=== PATIENT | male | born 1945 | race Caucasian/White ===

== ENCOUNTER 2016-11-20 16:38 | Inpatient (IN) | payer MEDICARE, SELFPAY ==
--- NOTE | ~2016-11-20 | HP ---
History And Physical [address] [address] [place]. [address] NAME: OSMAR BAER : 41 STATUS : ADM IN [facility]#: [id number] AGE: 71 ADM/REG DATE : 11/20/16 MR#: [id number] REPORT SERV DATE: 11/21/16 DICTATED BY: GAGE BIGGS DATE: 11/20/16 REPORT STATUS : Draft TRANSCRIBED BY: MODL DATE: 11/20/16 DATE OF ADMISSION: 11/20/2016 HISTORY OF PRESENT ILLNESS: This is a 71-year-old male who presented to [facility] because of the pain behind the right ear which was progressively increasing as well as he has a big hole behind of his ear with some connection to the mastoid, and there were maggots coming out of the wound. The patient denies any fever, no rash. He is complaining of periodic pain, and he says that he had a scalp cancer which was treated by Dr. Ortega, his oncologist; as well as Dr. Gopal Win, who is his Ear, Nose, and Throat; and Dr. Rodriguez, his radiation oncologist. He had his last chemotherapy in July and radiation therapy also in July, but for the last three weeks, progressively increasing pain behind of his right ear was worrisome for him as well as he saw recently Dr. Gopal Win who did biopsy on the big wound behind of his ear as well as he said that he had a PET scan ordered by Dr. Ortega. The patient denies any chest pain, no shortness of breath. No fever. No rash. No headache. No abdominal pain. Otherwise, he is doing well. He had multiple maggots in that wound which were coming out of the wound, and the nurse in the emergency room removed these maggots thoroughly, and there were so many of them and at least 50 maggots were removed. They said they will remove as much as possible. The patient is unaware how this maggots got into the wound. REVIEW OF SYSTEMS: 14-point review of system done and negative except for what is stated in the history of present illness. 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 SOCIAL HISTORY: The patient denies tobacco. No alcohol. No recreational drug use. FAMILY HISTORY: Significant for dementia, COPD, and cancer. ALLERGIES: HE IS ALLERGIC TO PENICILLIN. HOME MEDICATIONS: Diltiazem 240 mg a day, Neurontin 300 four times a day, morphine SR 30 mg twice a day, oxycodone with acetaminophen 5/325 twice daily, Seroquel 25 mg daily p.r.n. if mood is depressed, Coumadin 1.25 mg Thursday, Thursday, Thursday, and 2.5 mg Thursday, , Thursday, Thursday. PHYSICAL EXAMINATION: History And Physical [address] [address] NAME: OSMAR BAER : 43 STATUS : ADM IN [facility]#: [id number] AGE: 71 ADM/REG DATE : 11/20/16 MR#: [id number] REPORT SERV DATE: 11/21/16 DICTATED BY: GAGE BIGGS DATE: 11/20/16 REPORT STATUS : Draft TRANSCRIBED BY: ELEN DATE: 11/20/16 GENERAL: A well-nourished, well-developed male, not in acute distress, resting quietly. VITAL SIGNS: His blood pressure 135/71, temperature 97.7, heart rate 70, respiratory rate 17, oxygen saturation 96% on room air. HEENT: Head atraumatic, normocephalic. Conjunctivae clear. Pupils are equal and reactive to light and accommodation. Extraocular muscles are intact. There is a big wound behind the right ear and it is open wound with maggots coming out of it, and there is a connection with the mastoid area, and there is a big opening. NECK: Supple. Trachea is midline. LUNGS: Diminished breath sounds bilaterally. Decreased respiratory effort. CARDIOVASCULAR: Regular rate and rhythm. Point of maximal impulse not displaced. ABDOMEN: Soft, nontender, nondistended. Positive normoactive bowel sounds. EXTREMITIES: No clubbing, cyanosis. No edema. SKIN: Normal color, slightly decreased turgor. PSYCHIATRIC: Normal mood and affect. LABORATORY RESULTS: Sodium 142, potassium 4.1, chloride 109, carbon dioxide 29, BUN 18, creatinine 1.34, blood sugar 95, ALT 9, AST 8. White count 5.2, hemoglobin 10.5, hematocrit 34.4, platelet count 145. CT of the neck done in the emergency room showed extensive opacification of right middle ear cavity, external auditory canal, and right mastoid air cells with surrounding soft tissue thickening, and two adjacent rim enhancing hypodense collections, largest at the periauricular region, smaller rim enhancing collection inferior to the right mastoid prominence with diffuse thickening of the external ear. This may represent a severe or acute otomastoiditis pattern with adjacent focal soft tissue abscess in the periauricular area and caudal to the mastoid prominence, although an underlying neoplastic process is not excluded. The rim enhancing collection could represent centrally necrotic tumor although abscess is more favored. Correlation with clinical presentation with previous treatment regimens requested, probable reactively enlarged lymph nodes versus soft tissue metastatic nodule deep to the right sternocleidomastoid muscle. This is stable from prior PET scan where this nodule was definitely FDG avid. Multilevel degenerative disc disease and spondylitic changes through the cervical spine through T2, small indeterminate hypodense thyroid nodule largest on the right measuring 8 mm. Suggest followup schedule outpatient thyroid ultrasound for further characterization. His lactic acid level was 0.8. There is a wound culture done in the emergency room, which is currently pending. ASSESSMENT AND PLAN: 1. This is a 71-year-old male with necrotizing preauricular right-sided mass with maggots coming out of the huge wound with a connection to the mastoid/question if this is severe mastoiditis or this is related to his cancer. 2. Squamous cell cancer of the scalp with progression to the ear. 3. History of atrial fibrillation, on chronic Coumadin anticoagulation with subtherapeutic INR. 4. History of pacemaker placement. 5. History of deep vein thrombosis with history of IVC filter placement, history of congestive heart failure with chronic systolic dysfunction, ejection fraction 40 to 45%. History And Physical [address] [address] NAME: OSMAR BAER : 41 STATUS : ADM IN PAT#: [id number] AGE: 71 ADM/REG DATE : 11/20/16 MR#: [id number] REPORT SERV DATE: 11/21/16 DICTATED BY: GAEG BIGGS DATE: 11/20/16 REPORT STATUS : Draft TRANSCRIBED BY: MODL DATE: 11/20/16 6. History of lung cancer with history of treatment. 7. History of prostate cancer, status post ileostomy. The patient's all chronic medical problems currently stable. His problem is that big mass around his ear with maggots coming out of it. The patient is afebrile. He has a normal white count. So, question if this mass is related to infection or this is related to his cancer although with an open wound and having maggots in it, there is a risk of infection progression to inside of his skull. The patient was given triple antibiotic coverage with vancomycin, clindamycin, and meropenem here in the emergency room. We will cover him with Azactam and vancomycin intravenously. We will check his procalcitonin level. Blood cultures are already drawn. We will consult Dr. Win, Ear, Nose, Throat, as well as we will consult Dr. Ortega, his oncologist, to make a further decision on this patient's treatment plan. We will give him reasonable control for pain with morphine p.r.n. as well as we will continue his home medications. Pharmacy will do his Coumadin anticoagulation. My partner will see this patient starting tomorrow morning. MG/MODL Gage Biggs M.D. / [id number] CC: Geovanny Quiles
--- NOTE | ~2016-11-20 | CN ---
Consultation Report [place] [address] [place]. [address] NAME: OSMAR COREA : 41 STATUS : ADM IN [facility]#: [id number] AGE: 71 ADM/REG DATE : 11/20/16 MR#: [id number] REPORT SERV DATE: 11/21/16 DICTATED BY: YOKO COMBS DATE: 11/21/16 REPORT STATUS : Draft TRANSCRIBED BY: MODL DATE: 11/21/16 CONSULT REPORT DATE OF CONSULTATION: 11/21/2016 SERVICE: Otolaryngology. CHIEF COMPLAINT: Right yolanda-auricular lesion/abscess. HISTORY OF PRESENT ILLNESS: Mr. Corea is a pleasant 71-year-old, known to our service for history of multiple head and neck cancer. He had a deeply invasive squamous cell carcinoma of his left parietal scalp as well as an invasive squamous cell carcinoma of his right parietal scalp status post removal on 01/03/2016. He underwent revision of the right parietal scalp with skin graft placement on 03/12/2016. He has a right preauricular metastatic squamous cell carcinoma diagnosed on 04/09/2016. He subsequently underwent chemoradiation with Dr. Ortega and Dr. Rodriguez. This was completed in July 2016. Post chemoradiation, a PET/CT showed an acute inflammatory process of the right ear, right middle ear and external ear. This was performed on 10/03/2016. He was seen in our clinic on 11/13/2016, at which time an ear wick was placed and Ciprodex drops were used. Over the last 24 hours, he has noticed increasing breakdown of his right ear wound. He was also found to have maggots living within his wound bed. He presents to [facility] for further evaluation. IV antibiotics have been started. Based on prior history, ENT is consulted. PAST MEDICAL HISTORY: 1. Lung cancer. 2. Prostate cancer. 3. Basal cell skin cancer. 4. Squamous cell skin cancer as listed above. 5. Chemoradiation. 6. DVT. 7. Hypertension. 8. Diabetes mellitus. PAST SURGICAL HISTORY: 1. History of prostate surgery. 2. Multiple skin cancer resections as well as skin graft reconstruction. ALLERGIES: PENICILLIN. FAMILY HISTORY: There is no history of head and neck cancer in his family. SOCIAL HISTORY: The patient is a former smoker. He denies the current use of alcoholic beverages. He lives with his spouse currently. Consultation Report [place] [address] [place]. [address] NAME: OSMAR COREA : 41 STATUS : ADM IN PAT#: [id number] AGE: 71 ADM/REG DATE : 11/20/16 MR#: [id number] REPORT SERV DATE: 11/21/16 DICTATED BY: YOKO COMBS DATE: 11/21/16 REPORT STATUS : Draft TRANSCRIBED BY: ELEN DATE: 11/21/16 PHYSICAL EXAMINATION: GENERAL: The patient is awake, alert, oriented, and in no acute distress. HEAD: There is obvious right facial asymmetry with House-Brackmann Score of 5/6. He is unable to obtain full eye closure with gross discrepancy arrest. His nasal ala does not flare. His oral commissure is drooping at rest. EARS: His right ear is somewhat proptotic due to postauricular wound breakdown. There is a large cavernous defect at the site of his mastoid, external auditory canal, and middle ear. There is clear evidence of maggots inside this wound. There is no active bleeding or drainage. The left ear appears healthy and intact. EYES: Extraocular movements are intact. There is no scleral injection at present. NOSE: Anterior rhinoscopy shows healthy mucosa, oral cavity. There is very poor dentition and gingival disease. The patient is otherwise healthy. NECK: I do not appreciate discrete palpable cervical adenopathy on today's exam. CARDIOVASCULAR: The patient has well-perfused extremities overall. RESPIRATORY: The patient has nonlabored breathing with no stridor. EXTREMITIES: The patient has full range of motion in all extremities. ASSESSMENT: 1. Mr. Corea is a 71-year-old with known squamous cell carcinoma, which is likely metastasized from his primary scalp lesions in the past. A recent FNA biopsy was performed in clinic on 11/13/2016, which was consistent with moderate to poorly differentiated squamous cell carcinoma. He has had increased wound break down as well as cavernous defect in his post-auricular region. There are maggots growing in his ear as well. 2. We discussed ongoing management to include wet-to-wet dressings with 0.25% Dakin's solution four times daily. This will need to be performed for debridement of the wound. This wound likely represents a combination of cancer recurrence, osteoradionecrosis, and wound breakdown from superimposed infection. 3. I recommend contacting Dr. Ortega and Dr. Rodriguez as he has recently undergone chemoradiation. 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 4. We will plan to present this patient at our Head and neck tumor conference this upcoming Thursday to discuss plans. Surgical resection would likely be extremely difficult due to surrounding inflammation, osteoradionecrosis, location, and likely inability to clear surgical margins at this time. We would recommend consulting palliative care and hospice at present. 5. The patient did have a PET/CT in September 2016, which was likely slightly early after his chemoradiation treatment. He would need an additional PET/CT to assess for distant metastasis as well as for further evaluation of his primary and temporal bone squamous cell carcinoma. We would also consider a temporal bone CT with fine cuts through the temporal bone to assess the full extent of this tumor. This will be performed with contrast. 6. We recommend the patient have Lacri-Lube and Artificial Tears for inability to achieve full eye closure. 7. We will call the patient with the tumor board recommendations and discuss follow up at Consultation Report [address] [place]. [address] NAME: OSMAR COREA : 41 STATUS : ADM IN [facility]#: [id number] AGE: 71 ADM/REG DATE : 11/20/16 MR#: [id number] REPORT SERV DATE: 11/21/16 DICTATED BY: YOKO COMBS DATE: 11/21/16 REPORT STATUS : Draft TRANSCRIBED BY: MODL DATE: 11/21/16 that time. The patient is currently on IV antibiotics. It is reasonable to transition the patient to a fluoroquinolone or clindamycin for home management. We will plan to see him back in clinic in the near future. Thank you for this very interesting consult. We will plan to follow the patient while he is in-house. Please call [phone] with any questions or concerns. /ELEN Yoko Combs MD / [id number] CC: MD AJITH Ruiz PAUL E
--- NOTE | ~2016-11-20 | DS ---
Discharge Summary [facility] [address] [facility] [place]. [address] NAME: OSMAR COREA : 41 STATUS : DIS IN PAT#: [id number] AGE: 71 ADM/REG DATE : 11/20/16 MR#: [id number] REPORT SERV DATE: 11/22/16 DICTATED BY: MALENA THOMAS DATE: 11/22/16 REPORT STATUS : Draft TRANSCRIBED BY: MODL DATE: 11/22/16 ADMISSION DATE: 11/20/2016 DISCHARGE DATE: 11/22/2016 REASON FOR ADMISSION: Necrotizing preauricular right-sided mass with maggots coming out of his wound. HISTORY OF PRESENT ILLNESS: Please refer to Dr. Rojas's history and physical dated 11/20/2016, for complete details regarding the patient's admission. In brief, the patient was admitted to the Hospitalist Service for management of the above. HOSPITAL COURSE: The patient had an uncomplicated hospital course. He had a neck CT done which showed extensive opacification in the right middle ear cavity, external auditory canal, and right mastoid air cells with surrounding soft tissue thickening and two adjacent rim-enhancing hypodense collections, may represent severe acute otomastoiditis versus a neoplastic process. Probable reactive enlarged lymph nodes. With these findings, ENT was consulted along with Dr. Ortega. Dr. Rosas evaluated the patient who is well known to the ENT service, felt that the patient has likely metastasized squamous cell carcinoma from his primary scalp lesions. A recent FNA biopsy was performed in the clinic just a week ago which was consistent with moderate to poorly differentiated squamous cell carcinoma. He has had increased wound break down as well as cavernous defect in the postauricular region. There were maggots growing in his ear. He recommended starting a Dakin's Solution 4 times a day to help clear the maggots. Dr. 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 A culture of the wound did come out as being positive for E. coli. ENT recommended palliative chemotherapy versus hospice. Dr. Ortega had felt that the patient would have a potentially good response to palliative chemotherapy. He was started on vancomycin and aztreonam. The patient did not have any fever or leukocytosis. He had reached maximal hospitalization. He will be discharged home today in a stable condition, to continue the Dakin's Solution along with oral antibiotics and to follow up with Dr. Ortega next week to discuss hospice versus palliative chemotherapy. DISCHARGE DIAGNOSES: 1. 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 2. Maggots from the wound. 3. Paroxysmal atrial fibrillation, on Coumadin. 4. History of DVT with IVC filter placement. PROCEDURES: Include neck CT. CONSULTATION: With Dr. Ortega and Dr. Rosas with ENT. DISCHARGE MEDICATIONS: Include 1. Diltiazem 240 mg every morning. 2. Neurontin 300 mg 4 times a day. Discharge Summary [address] [address] NAME: OSMAR COREA : 41 STATUS : DIS IN PAT#: [id number] AGE: 71 ADM/REG DATE : 11/20/16 MR#: [id number] REPORT SERV DATE: 11/22/16 DICTATED BY: MALENA THOMAS DATE: 11/22/16 REPORT STATUS : Draft TRANSCRIBED BY: ELEN DATE: 11/22/16 3. MS Contin 30 mg twice a day. 4. Coumadin 1.25 mg Thursday, Thursday, and Thursday and 2.5 mg Thursday, , Thursday, and Thursday. 5. Percocet p.r.n. pain. 6. Seroquel p.r.n. 7. Dakin's Solution 4 times a day. 8. Clindamycin 300 mg four times a day for seven days. 9. Ceftin 500 mg twice a day for seven days. FOLLOWUP: The patient will follow up with Dr. Ortega as scheduled. Spending over 30 minutes discharge planning and coordination of care on Mr. Corea. CINDY/ELEN Malena Thomas MD / [id number] CC: MD NJ Ruiz MD Bertrand Marquess Anz III, M.D.
[~2016-11-20 16:38] MED LIST: ASAB PO; ASAEC PO; C25 PO; COZ50 PO; DIABET2.5 PO; DILT-XR240 MG PO; LEVAQUIN750 MG PO; MAX25 PO; MIRALAXPKT PO; MSCONTIN PO; MUCINEX600 MG PO; NEUR300 PO; NORCO1 TAB PO; OTC SLEEP AID PO; PRINZIDE1 TAB PO; PROAIR HFA INH; PROTONIX PO; T PO
[2016-11-20 16:48] LABS: BASOPHILS 0 %; EOSINOPHILS 0.8 %; EOSINOPHILS ABSOLUTE 0.04 10/3/uL (0.0-0.53); HEMOGLOBIN 10.5 g/dL (13.6-17.8); LYMPHOCYTES 13.7 %; LYMPHOCYTES ABSOLUTE 0.71 10/3/uL (0.67-4.30); MEAN PLATELET VOLUME 9.4 fL (9.2-13.0); MONOCYTES 9.5 %; MONOCYTES ABSOLUTE 0.49 10/3/uL (0.21-1.20); NEUTROPHILS ABSOLUTE 3.94 10/3/uL (2.02-8.40); RBC DISTRIBUTION WIDTH 17.3 % (12.0-16.0)
[2016-11-20 16:51] LABS: ER CBC TAT 0 Hrs 16 Mins; HEMATOCRIT 34.4 % (40.0-51.0); MANUAL DIFF NO %; MEAN CORPUS HGB CONC 30.5 g/dL (32.0-36.0); MEAN CORPUSCULAR HEMOGLOB 25.3 pg (26.0-34.0); MEAN CORPUSCULAR VOLUME 82.9 fL (80-100); PLATELET COUNT 145 10/3/uL (150-400); RED CELL COUNT 4.15 10/6/uL (4.7-6.1); WHITE BLOOD CELLS 5.2 10/3/uL (4.5-10.5)
[2016-11-20 16:58] LABS: CALCIUM, SERUM 8.8 MG/DL (8.5-10.4); CHLORIDE, SERUM 109 MMOL/L (96-112); CREATININE 1.34 MG/DL (0.70-1.30); GFR AFRICAN AMERICAN 60 ML/MIN (>=60); GFR NON AFRICAN AMERICAN 52 ML/MIN (>=60); POTASSIUM, SERUM 4.1 MMOL/L (3.5-5.3); SGOT(AST) 8 U/L (5-40); SGPT(ALT) 9 U/L (5-65); SODIUM, SERUM 142 MMOL/L (135-148); TOTAL BILIRUBIN 1.3 MG/DL (0-1.2)
[2016-11-20 16:59] LABS: A/G RATIO 0.7 (0.7-1.9); ALBUMIN 3.1 G/DL (3.5-5.0); ALKALINE PHOSPHATASE 93 U/L (45-117); BUN (BLOOD UREA NITROGEN) 18 MG/DL (6-23); CO2 (CARBON DIOXIDE) 29 MMOL/L (24-34); GLOBULIN 4.2 G/DL (2.5-4.1); GLUCOSE, SERUM 95 MG/DL (60-99); TOTAL PROTEIN 7.3 G/DL (6.0-8.5)
[2016-11-20 19:24] LABS: INTERNATIONAL NORMAL RATI 1.5 UNITS (-); PARTIAL THROMBO TIME 35.9 SEC (22.5-37.2)
[2016-11-20] MEDS ORDERED: PCET PO (20:31)
[2016-11-20] MEDS ORDERED: MSCONTIN PO (20:32)
[2016-11-20] MEDS ORDERED: CARDCD240 PO (20:32)
[2016-11-20] MEDS ORDERED: NEUR300 PO (20:33)
[2016-11-20] MEDS ORDERED: C25 PO ×2 (20:33→20:34)
[2016-11-20] MEDS ORDERED: SEROQUEL25 PO (20:34)
[2016-11-20 23:53] LABS: PROCALCITONIN 0.05 ng/mL (<0.5)
[2016-11-21 06:35] LABS: BASOPHILS 0.3 %; BASOPHILS ABSOLUTE 0.01 10/3/uL (0.0-0.16); EOSINOPHILS 1.6 %; EOSINOPHILS ABSOLUTE 0.06 10/3/uL (0.0-0.53); HEMATOCRIT 32.2 % (40.0-51.0); HEMOGLOBIN 9.8 g/dL (13.6-17.8); IMMATURE GRANULOCYTES 0.3 %; IMMATURE GRANULOCYTES ABSOLUTE 0.01 10/3/uL (0.0-0.11); LYMPHOCYTES 16.8 %; LYMPHOCYTES ABSOLUTE 0.64 10/3/uL (0.67-4.30); MEAN CORPUS HGB CONC 30.4 g/dL (32.0-36.0); MEAN CORPUSCULAR HEMOGLOB 25.5 pg (26.0-34.0); MEAN CORPUSCULAR VOLUME 83.6 fL (80-100); MEAN PLATELET VOLUME 9.8 fL (9.2-13.0); MONOCYTES 9.7 %; MONOCYTES ABSOLUTE 0.37 10/3/uL (0.21-1.20); NEUTROPHILS 71.3 %; NEUTROPHILS ABSOLUTE 2.72 10/3/uL (2.02-8.40); PLATELET COUNT 138 10/3/uL (150-400); RBC DISTRIBUTION WIDTH 17.4 % (12.0-16.0); RED CELL COUNT 3.85 10/6/uL (4.7-6.1); WHITE BLOOD CELLS 3.8 10/3/uL (4.5-10.5)
[2016-11-21 06:39] LABS: INTERNATIONAL NORMAL RATI 1.7 UNITS (-); MANUAL DIFF NO %; PROTIME (NOT ORD) 20.2 SEC (12.0-14.5)
[2016-11-21 06:46] LABS: BUN (BLOOD UREA NITROGEN) 18 MG/DL (6-23); CALCIUM, SERUM 8.5 MG/DL (8.5-10.4); CHLORIDE, SERUM 108 MMOL/L (96-112); CO2 (CARBON DIOXIDE) 29 MMOL/L (24-34); CREATININE 1.09 MG/DL (0.70-1.30); GFR AFRICAN AMERICAN 78 ML/MIN (>=60); GFR NON AFRICAN AMERICAN 67 ML/MIN (>=60); GLUCOSE, SERUM 90 MG/DL (60-99); POTASSIUM, SERUM 3.8 MMOL/L (3.5-5.3); SODIUM, SERUM 141 MMOL/L (135-148)
[2016-11-22 07:47] LABS: INTERNATIONAL NORMAL RATI 1.9 UNITS (-); PROTIME (NOT ORD) 21.7 SEC (12.0-14.5)
[2016-11-22] MEDS ORDERED: CLEOCIN300 MG PO (12:24)
[2016-11-22] MEDS ORDERED: CEFT5 PO (12:24)
[2016-11-22] MEDS ORDERED: DAKINS SOLUTION (12:26)
== END 2016-11-22 13:11 | disposition home or self-care (01) | DRG 607 ==
LOC: ER 16:38 → 5SO 21:17
PROVIDERS: Hospitalist; Nurse Practitioner
DX: C44.222 Squamous cell carcinoma of skin of right ear and external auricular canal (principal); I13.0 Hypertensive heart and chronic kidney disease with heart failure and stage 1 through stage 4 chronic kidney disease, or unspecified chronic kidney disease; I48.0 Paroxysmal atrial fibrillation; I50.22 Chronic systolic (congestive) heart failure; M27.2 Inflammatory conditions of jaws; B87.4 Aural myiasis; B96.20 Unspecified Escherichia coli [E. coli] as the cause of diseases classified elsewhere; N18.9 Chronic kidney disease, unspecified; Y84.2 Radiological procedure and radiotherapy as the cause of abnormal reaction of the patient, or of later complication, without mention of misadventure at the time of the procedure; Y92.89 Other specified places as the place of occurrence of the external cause; Z85.118 Personal history of other malignant neoplasm of bronchus and lung; Z86.718 Personal history of other venous thrombosis and embolism; Z85.46 Personal history of malignant neoplasm of prostate; Z92.21 Personal history of antineoplastic chemotherapy; Z92.3 Personal history of irradiation; Z79.01 Long term (current) use of anticoagulants; Z88.0 Allergy status to penicillin
CPT/HCPCS: 70491; 80048; 80053; 83605; 83735; 84145; 85025; 85610; 85730; 87040; 87070; 87077; 87186; 87205; 93005; 96365; 96367; 96375; 99285; A9270-GY; J2185; J2405; J3370; Q9967